=== PATIENT | female | born 1975 | race Caucasian/White ===

== ENCOUNTER → 2017-04-06 | Outpatient (CLI) | payer BC ==
[2017-04-06 16:02] LABS: Basophils # (A) 0.1 k/uL (0-0.2); Basophils % (A) 1 %; Eosinophils # (A) 0.2 k/uL (0-0.7); Eosinophils % (A) 3 %; HCT 39.1 % (34.0-46.0); Lymphocytes # (A) 3.7 k/uL (1.0-4.8); Lymphocytes % (A) 40 %; MCH 27.5 pg (25.0-35.0); MCHC 30.8 g/dL (31.0-37.0); MCV 89.6 fL (80.0-100.0); Monocytes # (A) 0.3 k/uL (0-1.0); Monocytes % (A) 4 %; Neutrophils # (A) 4.8 k/uL (1.3-7.7); Neutrophils % (A) 52 %; Platelet Count 273 k/uL (150-450); RBC 4.37 m/uL (3.80-5.40); RDW 14.6 % (11.5-15.5); WBC 9.3 k/uL (3.8-10.6)
== END | disposition home or self-care (01) ==
LOC: LABPAT 15:33 → LABWHC1 15:33
PROVIDERS: ATTEND Obstetrics & Gynecology
DX: Z01.812 Encounter for preprocedural laboratory examination (principal); Z01.818 Encounter for other preprocedural examination
CPT/HCPCS: 36415; 85025

== ENCOUNTER 2017-04-13 06:33 | Day surgery (SDC) | payer BC ==
[2017-04-04 16:07] VITALS: BMI 29.9
[~2017-04-13 06:33] MED LIST: DEXAMETHASONE SOD PHOSPHATE 10 MG/ML 1 ML VIAL IV ONE; LACTATED RINGERS 1,000 ML IV SCH; MIDAZOLAM 2 MG/2 ML VIAL IV PRN; MORPHINE SULFATE 4 MG/ML SYRINGE IV PRN; ONDANSETRON 4 MG/2 ML VIAL IVP ONE; Pre Op ABX Message 1 EACH MISC MISCELLANE ONE; SCOPOLAMINE 1.5MG/72HR PATCH TRANSDERM ONE
[2017-04-13] MEDS ORDERED: LIDOCAINE 1% 20 ML VIAL (10MG/ML) FOR IV START INTRADERMA ONE (07:00)
[2017-04-13] MEDS ORDERED: BUPIVACAINE (PF) 0.25% 30 ML VIAL SQ ONE ×2 (07:41→08:02)
[2017-04-13] MEDS ORDERED: MIDAZOLAM 2 MG/2 ML VIAL ONE (07:43)
[2017-04-13] MEDS ORDERED: LIDOCAINE 1% INJ 10MG/ML (20 ML MDV) ONE (07:43)
[2017-04-13] MEDS ORDERED: PROPOFOL 10 MG/ML 20 ML VIAL IV ONE (07:43)
[2017-04-13] MEDS ORDERED: KETOROLAC 30 MG/ML 1 ML VIAL ONE (07:43)
[2017-04-13] MEDS ORDERED: fentaNYL (PF) 50 MCG/ML 2 ML AMP ONE (07:43)
[2017-04-13] MEDS ORDERED: SUCCINYLCHOLINE CHLORIDE 100 MG/5 ML SYR IV ONE (07:43)
--- NOTE | 2017-04-13 08:13 | P.HPOB ---
History of Present Illness H&P Date: 04/13/17 Chief Complaint: Family planning Tiesha is a 42-year-old female who is completed her family planning desires permanent sterilization. Risks/benefits/alternatives to a laparoscopic tubal occlusion were discussed with the patient in detail and all questions were answered for her prior to proceeding to the operating room. On physical exam her vital signs are stable and afebrile. Heart regular, lungs clear, extremities without pain. Osteopathic exams unremarkable. Pelvic exam is unremarkable. She does have slightly retroverted uterus. Assessment family planning. Plan left tubal with Filshie clips Past Medical History Additional Past Medical History / Comment(s): Heart murmur. History of Any Multi-Drug Resistant Organisms: None Reported Past Surgical History: Adenoidectomy, Tonsillectomy Additional Past Surgical History / Comment(s): D&C Past Anesthesia/Blood Transfusion Reactions: No Reported Reaction Past Psychological History: No Psychological Hx Reported Smoking Status: Current every day smoker Past Alcohol Use History: Rare Additional Past Alcohol Use History / Comment(s): Has been a smoker for 25 yrs, 1 PPD. Past Drug Use History: None Reported - Past Family History Mother History Unknown: Yes Family Medical History: Cancer, Diabetes Mellitus, Hypertension, Thyroid Disorder Medications and Allergies Home Medications Medication Instructions Recorded Confirmed Type Acetaminophen-Codeine 300-30mg 1 tab PO Q4H PRN #30 tablet 04/13/17 Rx [Tylenol #3] Allergies Allergy/AdvReac Type Severity Reaction Status Date / Time No Known Allergies Allergy Verified 04/04/17 15:58 Exam Osteopathic Statement: *. No significant issues noted on an osteopathic structural exam other than those noted in the History and Physical/Consult. - Vital Signs Vital signs: Vital Signs Temp Pulse Resp BP Pulse Ox 04/13/17 06:52 98.3 F 77 18 117/81 98 Intake and Output 04/12/17 04/13/17 04/13/17 22:59 06:59 14:59 Intake Total 100 Output Total 52 Balance 48 Intake: IV 100 Output: Urine 50 Estimated Blood Loss 2
--- NOTE | 2017-04-13 08:15 | P.OP ---
Date of Procedure: 04/13/17 Preoperative Diagnosis: Family planning Postoperative Diagnosis: Same Procedure(s) Performed: Laparoscopic tubal occlusion with Filshie clips Anesthesia: MIHIR Surgeon: Tate Piedra Estimated Blood Loss (ml): 2 IV fluids (ml): 500 Urine output (ml): 50 Pathology: none sent Condition: stable Disposition: same day Operative Findings: Normal tubes ovaries and uterus Description of Procedure: Patient was taken to the operating suite where a general anesthetic was found be adequate. She was prepped and draped in the normal sterile fashion and placed in the dorsal lithotomy position. Initially a speculum was inserted into the vagina into lip cervix identified and grasped with an Allis clamp. It was then sounded to 8 cm and a manipulator was inserted without difficulty. Speculum and Allis clamp were removed and red rubber catheter was used to drain the bladder of urine. Once this was accomplished gloves were changed and attention was turned to the abdominal portion of the procedure were 2 mL of quarter percent Marcaine were injected periumbilically. Through this anesthetic a 5 mm skin incision was made and a 5 mm port and sleeve were inserted under optical guidance once this was accomplished. Once peritoneal placement was assured gas was allowed to fully insufflate the abdomen and patient was then placed in steep Trendelenburg position. A second 8 mm skin incision was then made 3 cm above the pubic symphysis in the midline and this port was also placed under direct guidance. Once both ports and sleeves were inserted uterus was elevated and the right fallopian tube and left fallopian tube were identified grasped with a Filshie clip approximately 2-3 cm from uterine cornu. No bleeding was noted from the mesosalpinx therefore instruments were removed and gas was allowed to expel from the abdomen. Deep breaths were provided during this process. 4-0 Vicryl was then used to close incision subcuticularly. Sponge, lap, needle counts were all correct 2. The remaining 8 mL of quarter percent Marcaine was then injected around the incisions and instruments were removed from the vagina. Sponge, lap, needle counts were all correct 2. Patient was taken to the recovery room in stable and satisfactory condition. Plan - Discharge Summary New Discharge Prescriptions: New Acetaminophen-Codeine 300-30mg [Tylenol #3] 1 tab PO Q4H PRN #30 tablet PRN Reason: Pain Discharge Medication List Acetaminophen-Codeine 300-30mg [Tylenol #3] 1 tab PO Q4H PRN #30 tablet [Rx] Follow up Appointment(s)/Referral(s): Tate Piedra DO [Doctor of Osteopathic Medicine] - 2 Weeks Activity/Diet/Wound Care/Special Instructions: no heavy lifting, limit stairs and driving and pelvic rest. call for any high tempratures, heavy bleeding, or severe pain Discharge Disposition: HOME SELF-CARE
[2017-04-13 08:28] VITALS: RESP 16; TEMP 97
[2017-04-13] MEDS: HYDROmorphone 0.5 MG/0.5 ML SYRINGE IVP ONE ×3 (08:32→08:50)
[2017-04-13 09:13] VITALS: BP 142/95; PULSE 66
[2017-04-13] MEDS ORDERED: Acetaminophen-Codeine 300-30mg TAB PO ONE (09:30)
== END 2017-04-13 10:06 | disposition home or self-care (01) ==
LOC: OR 06:33
PROVIDERS: ATTEND Obstetrics & Gynecology
DX: Z30.2 Encounter for sterilization (principal); N85.4 Malposition of uterus; R01.1 Cardiac murmur, unspecified; F17.210 Nicotine dependence, cigarettes, uncomplicated
CPT/HCPCS: 81025; 58671; J2250; J1100; J2405; J2001; J3010; J1885; J0330; J2704; J1170

== ENCOUNTER → 2017-09-04 | Outpatient (CLI) | payer BC ==
--- NOTE | 2017-09-04 11:18 | XR ---
EXAMINATION TYPE: XR shoulder limited LT DATE OF EXAM: 09/04/2017 COMPARISON: NONE HISTORY: pain TECHNIQUE: Two views are submitted. FINDINGS: The osseous structures are intact. There is no acute fracture or dislocation. The AC joint is maint ained. IMPRESSION: 1. No acute process. If symptoms persist correlate with MRI.
== END | disposition home or self-care (01) ==
LOC: RADXRMAIN 10:50
PROVIDERS: ATTEND Family Medicine
DX: M25.512 Pain in left shoulder (principal)